=== PATIENT | female | born 2000 | race Hispanic/Latino ===

== ENCOUNTER 2019-06-20 20:06 | Emergency (ER) | payer OTHER ==
[2019-06-20] MEDS ORDERED: Ketorolac Tromethamine 30 MG/ML VIAL ONE (20:55)
== END 2019-06-20 21:14 | disposition home or self-care (01) ==
LOC: SCSER 20:06
DX: H60.501 Unspecified acute noninfective otitis externa, right ear (principal)
CPT/HCPCS: 96372; 99282; J1885